=== PATIENT | female | born 1940 | race Caucasian/White ===

== ENCOUNTER 2016-12-07 09:30 | Emergency (ER) | payer MEDICARE, MEDICAID ==
--- NOTE | 2016-12-07 09:46 | UC ---
Hip/Pelvis Pain - HPI Summary HPI Summary: 75 YEAR OLD FEMALE PRESENTS WITH RIGHT HIP/LEG PAIN. - History Of Current Complaint Stated Complaint: RIGHT HIP/GROIN PAIN Time Seen by Provider: 12/07/16 09:45 Hx Obtained From: Patient Hx Last Menstrual Period: n/a Onset/Duration: Sudden Onset Severity Initially: Moderate Severity Currently: Moderate Pain Scale Used: 0-10 Numeric - 5 Character Of Pain: Sharp Aggravating Factor(s): Nothing Alleviating Factor(s): Nothing Associated Signs And Symptoms: Positive: Negative - Allergies/Home Medications Allergies/Adverse Reactions: Allergies Allergy/AdvReac Type Severity Reaction Status Date / Time Ofloxacin [From Floxin] Allergy Unknown Unknown Verified 12/07/16 09:57 Reaction Details Penicillins Allergy Unknown Unknown Verified 12/07/16 09:57 Reaction Details Phenobarbital Allergy Unknown Unknown Verified 12/07/16 09:57 Reaction Details Sulfa Drugs Allergy Unknown Unknown Verified 12/07/16 09:57 Reaction Details LUMINOL Allergy Unknown Unknown Uncoded 12/07/16 09:57 Reaction Details PMH/Surg Hx/FS Hx/Imm Hx Previously Healthy: Yes Other History Of: Negative For: HIV, Hepatitis B, Hepatitis C, Anticoagulant Therapy - Surgical History Surgical History: Yes Surgery Procedure, Year, and Place: TUBAL LIGATION, BLADDER NECK PLASTY, CLOSED REDUCTION,INTERNAL FIXATION L METATARSAL (Pt denies on 08/23/12) - Family History Known Family History: Negative: Diabetes - Social History Alcohol Use: None Substance Use Type: None Smoking Status (MU): Former Smoker Type: Cigarettes Have You Smoked in the Last Year: No - Immunization History Most Recent Influenza Vaccination: 2014 Most Recent Pneumonia Vaccination: 06/08/14 Review of Systems Constitutional: Negative Skin: Negative Eyes: Negative ENT: Negative Respiratory: Negative Cardiovascular: Negative Gastrointestinal: Negative Genitourinary: Negative Motor: Negative Neurovascular: Negative Musculoskeletal: Other: - RIGHT HIP PAIN Neurological: Negative Psychological: Negative All Other Systems Reviewed And Are Negative: Yes Physical Exam Triage Information Reviewed: Yes Eye Exam: Normal ENT Exam: Normal Dental Exam: Normal Neck exam: Normal Neck: Positive: 1 Respiratory Exam: Normal Cardiovascular Exam: Normal Abdominal Exam: Normal Musculoskeletal: Positive: Other: - RIGHT HIP PAIN Neurological Exam: Normal Psychological Exam: Normal Skin Exam: Normal Hip Injury Course/Dx - Differential Dx/Diagnosis Provider Diagnoses: RIGHT HIP PAIN. RIGHT GREATER TROCHANTERIC BURSITIS Discharge - Discharge Plan Condition: Stable Disposition: HOME Prescriptions: Methylprednisolone [Medrol Dosepak 4 MG*] 4 mg PO .SEE DELVIN INSTRUCTION #21 tab Patient Education Materials: Hip Pain (ED) Referrals: Jesus Manuel Encarnacion MD [Primary Care Provider] - Additional Instructions: PHYSICAL THERAPY
[2016-12-07 09:55] VITALS: BP 98/67
== END 2016-12-07 10:14 | disposition home or self-care (01) ==
LOC: UCCORT 09:30
DX: M70.61 Trochanteric bursitis, right hip (principal); Z88.2 Allergy status to sulfonamides; Z88.5 Allergy status to narcotic agent; Z88.1 Allergy status to other antibiotic agents; Z87.891 Personal history of nicotine dependence
CPT/HCPCS: 99212; G0463

== ENCOUNTER 2017-05-30 08:19 | Emergency (ER) | payer MEDICARE, MEDICAID ==
[2017-05-30 08:36] VITALS: BP 97/60
--- NOTE | 2017-05-30 08:57 | UC ---
Ear Complaint HPI - HPI Summary HPI Summary: hearing aide tip stuck in left ear. no c/o pain - has had ear flushed before for cerumen impaction. 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/Locomotive Mechanic Hx Last Menstrual Period: n/a Onset/Duration: Sudden Onset Severity Initially: Mild Severity Currently: Mild Pain Intensity: 0 Aggravating Factors: Nothing Alleviating Factors: Nothing Associated Signs/Symptoms: Positive: Hearing Loss - Allergies/Home Medications Allergies/Adverse Reactions: Allergies Allergy/AdvReac Type Severity Reaction Status Date / Time ofloxacin Allergy Unknown unable to Verified 05/30/17 08:38 determine Penicillins Allergy Unknown Unknown Verified 05/30/17 08:38 Reaction Details phenobarbital Allergy Unknown Unknown Verified 05/30/17 08:37 Reaction Details sulfamethizole Allergy Unknown Unknown Verified 05/30/17 08:39 Reaction Details PMH/Surg Hx/FS Hx/Imm Hx Previously Healthy: Yes Other History Of: Negative For: HIV, Hepatitis B, Hepatitis C, Anticoagulant Therapy - Surgical History Surgical History: Yes Surgery Procedure, Year, and Place: TUBAL LIGATION, BLADDER NECK PLASTY, CLOSED REDUCTION,INTERNAL FIXATION L METATARSAL (Pt denies on 08/23/12) - Family History Known Family History: Positive: None Negative: Diabetes - Social History Occupation: Disabled Lives: [facility] Alcohol Use: None Substance Use Type: None Smoking Status (MU): Former Smoker Type: Cigarettes Have You Smoked in the Last Year: No - Immunization History Most Recent Influenza Vaccination: 2014 Most Recent Pneumonia Vaccination: 06/08/14 Review of Systems Constitutional: Negative Skin: Negative Eyes: Negative ENT: Other - hearing aid tip stuck in left ear - wax present also Respiratory: Negative Cardiovascular: Negative Gastrointestinal: Negative Genitourinary: Negative Neurological: Negative Psychological: Negative Is Patient Immunocompromised?: No All Other Systems Reviewed And Are Negative: Yes Physical Exam Triage Information Reviewed: Yes Appearance: Well-Appearing Vital Signs: Initial Vital Signs Temp 97.4 F 05/30/17 08:32 Pulse 63 05/30/17 08:32 Resp 16 05/30/17 08:32 BP 97/60 05/30/17 08:32 Pulse Ox 100 05/30/17 08:32 Vital Signs Reviewed: Yes Eye Exam: Normal ENT: Positive: Other - hearing aid tip stuck in left ear - wax buildup Respiratory Exam: Normal Cardiovascular Exam: Normal Abdominal Exam: Normal Neurological Exam: Normal Psychological Exam: Normal Skin Exam: Normal Ear Complaint Course/Dx - Course Course Of Treatment: pulled out hearing aid tip with tweezers. flushed left ear with warm water and received a large amount dark brown cerumen TM intact no further foreign object present - tolerated well. f/u prn. filled out form from home - Differential Dx/Diagnosis Provider Diagnoses: cerumen impaction - left ear. foreign body removed left ear Discharge - Sign-Out/Discharge Documenting (check all that apply): Discharge - Discharge Plan Condition: Good Disposition: HOME Patient Education Materials: Cerumen Impaction (ED), Ear Foreign Body (ED) Referrals: Jesus Manuel Encarnacion MD [Primary Care Provider] - - Billing Disposition and Condition Condition: GOOD Disposition: HOME
== END 2017-05-30 09:50 | disposition home or self-care (01) ==
LOC: UCCORT 08:19
DX: T16.2XXA Foreign body in left ear, initial encounter (principal); X58.XXXA Exposure to other specified factors, initial encounter; H61.22 Impacted cerumen, left ear; Z88.0 Allergy status to penicillin; Z88.2 Allergy status to sulfonamides; Z88.8 Allergy status to other drugs, medicaments and biological substances; Z87.891 Personal history of nicotine dependence
CPT/HCPCS: 99212; G0463

== ENCOUNTER 2017-06-16 16:44 | Emergency (ER) | payer MEDICARE, MEDICAID ==
[2017-06-16 18:50] VITALS: BP 105/69
--- NOTE | 2017-06-16 18:51 | UC ---
Complaint Female HPI - HPI Summary HPI Summary: Pt with dysuria, frequency and hematuria tonight. 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 Hammer Operator Hx Last Menstrual Period: n/a ?: No Onset/Duration: Gradual Onset Timing: Intermittent Severity Initially: Mild Severity Currently: None Pain Intensity: 0 Pain Scale Used: 0-10 Numeric Character: Burning Aggravating Factor(s): Urination Alleviating Factor(s): Nothing Associated Signs And Symptoms: Negative: Negative, Fever, Back Pain, Nausea - Allergies/Home Medications Allergies/Adverse Reactions: Allergies Allergy/AdvReac Type Severity Reaction Status Date / Time ofloxacin Allergy Unknown unable to Verified 06/16/17 18:43 determine Penicillins Allergy Unknown Unknown Verified 06/16/17 18:43 Reaction Details phenobarbital Allergy Unknown Unknown Verified 06/16/17 18:43 Reaction Details sulfamethizole Allergy Unknown Unknown Verified 06/16/17 18:43 Reaction Details PMH/Surg Hx/FS Hx/Imm Hx GI/ History: Other Other GI/ History: recurrent UTI Neurological History: Other Other Neurological History: MR Psychological History: Depression Other History Of: Negative For: HIV, Hepatitis B, Hepatitis C, Anticoagulant Therapy - Surgical History Surgical History: Yes Surgery Procedure, Year, and Place: TUBAL LIGATION, BLADDER NECK PLASTY, CLOSED REDUCTION,INTERNAL FIXATION L METATARSAL (Pt denies on 08/23/12) - Family History Known Family History: Positive: None Negative: Diabetes - Social History Occupation: Disabled Lives: [facility] Alcohol Use: None Substance Use Type: None Smoking Status (MU): Former Smoker Type: Cigarettes Have You Smoked in the Last Year: No - Immunization History Most Recent Influenza Vaccination: 2014 Most Recent Pneumonia Vaccination: 06/08/14 Review of Systems Constitutional: Negative Genitourinary: Dysuria, Hematuria, Frequency, Urgency All Other Systems Reviewed And Are Negative: Yes Physical Exam Triage Information Reviewed: Yes Completion Of Physical Exam Limited Due To: Other - pt with mild MR - Appearance: Well-Appearing, No Pain Distress, Well-Nourished Vital Signs: Initial Vital Signs Temp 97.3 F 06/16/17 18:44 Pulse 80 06/16/17 18:44 Resp 16 06/16/17 18:44 BP 105/69 06/16/17 18:44 Pulse Ox 100 06/16/17 18:44 Vital Signs Reviewed: Yes Eye Exam: Normal Eyes: Positive: Conjunctiva Clear ENT Exam: Normal ENT: Positive: Hearing grossly normal Neck exam: Normal Neck: Positive: Supple, Nontender, No Lymphadenopathy Respiratory Exam: Normal Respiratory: Positive: Chest non-tender, Lungs clear, Normal breath sounds, No respiratory distress, No accessory muscle use Cardiovascular Exam: Normal Cardiovascular: Positive: RRR, No Murmur Abdominal Exam: Normal Abdomen Description: Positive: Nontender, No Organomegaly, Soft. Negative: CVA Tenderness (R), CVA Tenderness (L) Bowel Sounds: Positive: Present Psychological: Positive: Other: - baseline per family Skin Exam: Normal Complaint Female Dx - Course Course Of Treatment: pt with dysuria, hematuria, frequency starting today. h/o uti. Pt with + uti on dip. culture. macrobid. hydrated. declined pyridium. culture pending. home forms complete - Differential Dx/Diagnosis Provider Diagnoses: uti Discharge - Sign-Out/Discharge Documenting (check all that apply): Discharge - Discharge Plan Condition: Stable Disposition: HOME Prescriptions: Nitrofurantoin Macrocrystal [Nitrofurantoin] 100 mg PO BID #20 capsule Patient Education Materials: Urinary Tract Infection in Women (ED) Referrals: Jesus Manuel Encarnacion MD [Primary Care Provider] - Additional Instructions: - stay well hydrated - drink plenty of non-alcoholic, non caffinated beverages - your urine will be further tested - if you require any changes to your treatment, we will contact you - this usually take 2 days - Contact your primary doctor to arrange a follow-up appointment next week. Contact your doctor or return with questions or concerns - Take your antibiotics exactly as prescribed until gone - Take pyridium as prescribed for discomfort. This will make your urine blaze orange - this is normal - Call your docto or go to the emergency department with questions or concerns- fever, vomiting, back pain, unable to urinate - Billing Disposition and Condition Condition: STABLE Disposition: HOME
[2017-06-16] MEDS ORDERED: Nitrofurantoin Macrocrystals* 50 MG CAP PO ONE (18:57)
== END 2017-06-16 19:07 | disposition home or self-care (01) ==
LOC: UCCORT 16:44
DX: N39.0 Urinary tract infection, site not specified (principal); Z87.891 Personal history of nicotine dependence; Z88.3 Allergy status to other anti-infective agents; Z88.0 Allergy status to penicillin; Z88.8 Allergy status to other drugs, medicaments and biological substances; Z88.2 Allergy status to sulfonamides
CPT/HCPCS: 81003; 87077; 87086; 87186; 99212; A9270-GY; G0463

== ENCOUNTER 2018-09-05 09:00 | Emergency (ER) | payer MEDICARE, MEDICAID ==
[2018-09-05 09:31] VITALS: BP 96/59
--- NOTE | 2018-09-05 09:45 | ED ---
Adult Trauma - HPI Summary HPI Summary: 77 yr old female with the complaint of fall. She lives in a [facility] and was noted to have fallen landing on the right buttock area. The patient has no pain or complaints presently. She seems to be at her normal baseline per the aid that is with her from the [facility]. - History of Current Complaint Chief Complaint: UCGeneralIllness Stated Complaint: SP FALL-RT SIDE PAIN Time Seen by Provider: 09/05/18 09:21 Hx Last Menstrual Period: n/a Pain Intensity: 0 - Allergy/Home Medications Allergies/Adverse Reactions: Allergies Allergy/AdvReac Type Severity Reaction Status Date / Time ofloxacin Allergy Unknown unable to Verified 09/05/18 09:34 determine Penicillins Allergy Unknown Unknown Verified 09/05/18 09:34 Reaction Details phenobarbital Allergy Unknown Unknown Verified 09/05/18 09:34 Reaction Details sulfamethizole Allergy Unknown Unknown Verified 09/05/18 09:34 Reaction Details PMH/Surg Hx/FS Hx/Imm Hx Endocrine/Hematology History: Denies: Hx Anticoagulant Therapy Cardiovascular History: Denies: Hx Congestive Heart Failure, Hx Deep Vein Thrombosis, Hx Hypertension , Hx Myocardial Infarction, Hx Pacemaker/ICD Respiratory History: Denies: Hx Asthma, Hx Chronic Obstructive Pulmonary Disease (COPD), Hx Lung Cancer, Hx Pneumonia, Hx Pulmonary Embolism GI History: Denies: Hx Gall Bladder Disease, Hx Gastrointestinal Bleed, Hx Ulcer, Hx Urosepsis History: Denies: Hx Kidney Stones, Hx Renal Disease Neurological History: Reports: Hx Seizures Denies: Hx Dementia, Hx Migraine, Hx Transient Ischemic Attacks (TIA) Psychiatric History: Reports: Hx Anxiety Denies: Hx Depression, Hx Schizophrenia, Hx Bipolar Disorder - Cancer History Cancer Type, Location and Year: breast cancer - Surgical History Surgery Procedure, Year, and Place: TUBAL LIGATION, BLADDER NECK PLASTY, CLOSED REDUCTION,INTERNAL FIXATION L METATARSAL (Pt denies on 08/23/12) Infectious Disease History: No Infectious Disease History: Denies: Traveled Outside the [place] in Last 30 Days - Family History Known Family History: Positive: None Negative: Diabetes - Social History Alcohol Use: None Substance Use Type: Reports: None Smoking Status (MU): Former Smoker Type: Cigarettes Have You Smoked in the Last Year: No Review of Systems Constitutional: Negative Positive: Other - contusion right buttock area. All Other Systems Reviewed And Are Negative: Yes Physical Exam Triage Information Reviewed: Yes Vital Signs On Initial Exam: Initial Vitals Temp Pulse Resp BP Pulse Ox 97.2 F 67 16 96/59 100 09/05/18 09:24 09/05/18 09:24 09/05/18 09:24 09/05/18 09:24 09/05/18 09:24 Vital Signs Reviewed: Yes Appearance: Positive: Well-Appearing, No Pain Distress Skin: Positive: Warm, Skin Color Reflects Adequate Perfusion, Other - right hip pelvis area without any redness, [place] or bruises. Head/Face: Positive: Normal Head/Face Inspection Eyes: Positive: EOMI ENT: Positive: Normal ENT inspection Neck: Positive: Nontender Respiratory/Lung Sounds: Positive: Clear to Auscultation Cardiovascular: Positive: RRR Abdomen Description: Negative: Distended Musculoskeletal: Positive: Other - non tender to the right pelvis/hip on palpation. Neurological: Positive: Sensory/Motor Intact, Alert, Oriented to Person Place, Time, CN Intact II-III, Speech Normal Psychiatric: Positive: Normal - Sabrina Coma Scale Best Eye Response: 4 - Spontaneous Best Motor Response: 6 - Obeys Commands Best Verbal Response: 5 - Oriented Coma Scale Total: 15 Diagnostics - Vital Signs Vital Signs Temp Pulse Resp BP Pulse Ox 09/05/18 09:24 97.2 F 67 16 96/59 100 - Laboratory Lab Statement: Any lab studies that have been ordered have been reviewed, and results considered in the medical decision making process. Adult Trauma Course/Dx - Course Course Of Treatment: 77 yr old with contusion to the right pelvis. No evidence of any pain or imparement in use at this time. DC home. - Diagnoses Provider Diagnoses: Contusion of right hip Discharge - Sign-Out/Discharge Documenting (check all that apply): Patient Departure All imaging exams completed and their final reports reviewed: No Studies - Discharge Plan Condition: Good Disposition: HOME Patient Education Materials: Contusion in Adults (ED) Referrals: Jesus Manuel Encarnacion MD [Primary Care Provider] - 2 Days - Billing Disposition and Condition Condition: GOOD Disposition: Home
== END 2018-09-05 09:47 | disposition home or self-care (01) ==
LOC: UCCORT 09:00
DX: S70.01XA Contusion of right hip, initial encounter (principal); W19.XXXA Unspecified fall, initial encounter; Y92.009 Unspecified place in unspecified non-institutional (private) residence as the place of occurrence of the external cause; Z85.3 Personal history of malignant neoplasm of breast; Z87.891 Personal history of nicotine dependence
CPT/HCPCS: 99211; G0463

== ENCOUNTER 2018-12-22 13:13 | Emergency (ER) | payer MEDICARE, MEDICAID ==
--- OUTSIDE RECORDS SUMMARY | 2018-12-22 13:30 | XMS REPORT | Continuity of Care Document ---
:1940 External Reference #:[id number] Author Name Abhijeet Stallworth PA Address [address], [address] [place] [address] Care Team Providers Name Role Phone Jesus Manuel Encarnacion MD - Family Care Team Information Police Superintendent Medicine Nilo Stuart M.D. - Radiation Care Team Information Police Superintendent Oncology Problems Active Problems Provider Date Breast finding Sergio Padgett MD Onset: 06/07/2013 Malignant neoplasm of female breast Sergio Padgett MD Onset: 06/19/2013 [facility] colon History of chronic urinary tract Shyanne Freeman M.D. Onset: 02/24/2018 infection Urge incontinence of urine Shyanne Freeman M.D. Onset: 02/24/2018 Social History Type Date Description Comments Sex Unknown Tobacco Use Start: Unknown End: Former Cigarette Smoker Unknown ETOH Use Denies alcohol use Tobacco Use Start: Unknown End: Patient is a former smoker Unknown Recreational Drug Use Denies Drug Use Tobacco Use Start: Unknown Patient denies history of smoking Smoking Status Reviewed: 11/28/18 Patient denies history of smoking Allergies, Adverse Reactions, Alerts Active Allergies Reaction Severity Comments Date Sulfa Drugs 06/02/2013 Phenobarbital 06/02/2013 Floxin 06/02/2013 Penicillin 06/02/2013 Ofloxacin 02/24/2018 Luminal 02/24/2018 Medications Active Medications SIG Qnty Indications Ordering Date Provider Darifenacin 1 by mouth every Abhijeet Stallworth 12/12/2018 Hydrobromide ER day R., PA 15mg Tablets ER 24HR Systane Contacts Unknown Soothing Drops Solution Donepezil HCL Samina Thomas 10mg Marina, Tablets FMHNP Senna 1-2 by mouth per Unknown 8.6mg Tablets day as needed constipation Divalproex Sodium take one tablet by Unknown 500mg mouth twice a day Tablets DR Anastrozole 1 tablet by mouth Unknown 1mg Tablets qday Mylanta Unknown [id number]/5ML Suspension Artificial Tears instill 1 drop in Unknown 1.4% both eyes 4 times a Solution day Tussin DM Unknown 100-10mg/5ML Liquid Buspirone HCL 1 tab by mouth Unknown 10mg bid-tid for anxiety Tablets as needed Miralax 17g by mouth twice Unknown 3350NF Packet a day as needed constipation. Vitamin D3 po qd Unknown 2000Unit Capsules OS-Jignesh 500 + D Unknown Tablets Tylenol prn Unknown 325mg Tablets Multivitamins 1 by mouth every 90caps Unknown Capsules day History Medications Myrbetriq 1 by mouth every day 90tabs Shyanne Freeman, 12/06/2018 - 50mg Tablets M.D. Unknown ER 24HR Darifenacin 1 by mouth every day 45tabs Shyanne Freeman, 11/14/2018 - Hydrobromide ER x 2 weeks july M.D. 12/12/2018 7.5mg titrate 2 po qd in Tablets ER 24HR no improvement @ 2 weeks Immunizations Description No Information Available Vital Signs Date Vital Result Comment 12/12/2018 10:36am BP Systolic 120 mmHg BP Diastolic 66 mmHg Body Temperature 97.6 F Heart Rate 61 /min Respiratory Rate 16 /min Weight 171.00 lb O2 % BldC Oximetry 96 % Pain Level 0 11/14/2018 3:04pm BP Systolic Sitting Left Arm 101 mmHg BP Diastolic Sitting Left Arm 66 mmHg Body Temperature 97.8 F Heart Rate 110 /min Respiratory Rate 20 /min Height 64 inches 5'4" [place] body weight in kilograms 54 kg O2 % BldC Oximetry 97 % Results Test Date Facility Test Result H/L Range Note Urine Dipstick 11/14/2018 [facility]a Color yellow Yellow Ua Clarity clear Clear Ua Leuko neg Negative Ua Nitrite neg Negative Ua Urobilinogen neg Low 0.2 - 1.0 E.U./dL Ua Protein neg Negative Ua PH 6.5 6.5-7.5 Ua Blood neg Negative Ua Specific [place] 1.015 1.010-1.030 Ua Ketones neg Negative Ua Bilirubin neg Negative Ua Glucose neg Negative Procedures Date Code Description Status 11/14/2018 43786 Measurement Post Voiding Residual Urine By Completed Ultrasound,Non-Imaging 05/22/2014 [id number] Mammogram Completed 11/21/2013 [id number] Mammogram Completed 06/27/2013 [id number] Mammogram Completed 06/01/2013 [id number] Mammogram Completed 05/31/2013 [id number] Mammogram Completed 03/08/2012 [id number] Bone Mineral Density Test Completed 03/08/2007 [id number] Colonoscopy Completed Medical Devices Description No Information Available Encounters Type Date Location Provider Dx Diagnosis Office Visit 11/14/2018 Urology Abhijeet Stallworth, Z87.440 Personal history of 2:45p PA urinary (tract) infections N39.41 Urge incontinence Assessments Date Code Description Provider 12/12/2018 N39.41 Urge incontinence Abhijeet Stallworth PA 11/14/2018 Z87.440 Personal history of urinary (tract) Abhijeet Stallworth PA infections 11/14/2018 N39.41 Urge incontinence Abhijeet Stallworth PA Plan of Treatment Future Appointment(s):06/13/2019 10:30 am - Abhijeet Stallworth PA at [id number] 1:00 pm - Forrest Lang M.D. at Surgical Office Functional Status Functional Condition Comment Date Status Hearing Aid in Both ears Active Complete Dentures Active Mental Status Description No Information Available Referrals Description No Information Available
--- OUTSIDE RECORDS SUMMARY | 2018-12-22 13:30 | XMS REPORT | Continuity of Care Document ---
:1940 External Reference #:[id number] Author Name Forrest Lang M.D. (transmitted by agent of provider Abhijeet Stallworth) Address [address] [place] [id number] Care Team Providers Name Role Phone Jesus Manuel Encarnacion MD - Family Care Team Information Charge Account Authorizer Medicine Nilo Stuart M.D. - Radiation Care Team Information Charge Account Authorizer Oncology Problems Active Problems Provider Date Breast finding Sergio Padgett MD Onset: 06/07/2013 Malignant neoplasm of female breast Sergio Padgett MD Onset: 06/19/2013 Screening for malignant neoplasm of Forrest Lang M.D. Onset: colon History of chronic urinary [...] Date Provider Darifenacin 1 by mouth every 45tabs Pete, 11/14/2018 Hydrobromide ER day x 2 weeks july Hamilton Kimble 7.5mg titrate 2 po qd in Tablets ER 24HR no improvement @ 2 weeks Multivitamins 1 by mouth every 90caps Unknown Capsules day Tylenol prn Unknown 325mg Tablets OS-Jignesh 500 + D Unknown Tablets Vitamin D3 po qd Unknown 2000Unit Capsules Miralax 17g by mouth twice Unknown 3350NF Packet a day as needed constipation. Buspirone HCL 1 tab by mouth Unknown 10mg bid-tid for anxiety Tablets as needed Tussin DM Unknown 100-10mg/5ML Liquid Artificial Tears instill 1 drop in Unknown 1.4% both eyes 4 times a Solution day Mylanta Unknown [id number]/[id number] Suspension Anastrozole 1 tablet by mouth Unknown 1mg Tablets qday Divalproex Sodium take one tablet by Unknown 500mg mouth twice a day Tablets DR Bland 1-2 by mouth per Unknown 8.6mg Tablets day as needed constipation Donepezil HCL Samina Thomas 10mg Marina, Tablets FMHNP Systane Contacts Unknown Soothing Drops Solution History Medications Myrbetriq 1 by mouth every 90tabs Shyanne Freeman, 12/06/2018 - Unknown 50mg day M.D. Tablets ER 24HR Immunizations Description No Information Available Vital Signs [...] Rate 20 /min Height 64 inches 5'4" [place] body weight in kilograms 54 kg O2 [...] 6.5-7.5 Ua Blood neg Negative Ua Specific [place] 1.015 1.010-1.030 Ua Ketones neg Negative Ua Bilirubin neg Negative Ua Glucose neg Negative Procedures Date Code Description Status 11/14/2018 02325 Measurement Post Voiding Residual Urine By Completed Ultrasound,Non-Imaging 05/22/2014 [id number] Mammogram Completed 11/21/2013 [id number] Mammogram Completed 06/27/2013 [id number] Mammogram Completed 06/01/2013 [id number] Mammogram Completed 05/31/2013 [id number] Mammogram Completed 03/08/2012 [id number] Bone Mineral Density Test Completed 03/08/2007 [id number] Colonoscopy Completed Medical Devices Description No Information Available Encounters Type Date Location Provider Dx Diagnosis Office Visit 11/14/2018 Urology Abhijeet Stallworth, Z87.440 Personal history of 2:45p PA urinary (tract) infections N39.41 Urge incontinence Assessments Date Code Description Provider 11/14/2018 Z87.440 Personal history of urinary (tract) Abhijeet Stallworth PA infections 11/14/2018 N39.41 Urge incontinence Abhijeet Stallworth PA Plan of Treatment Future Appointment(s):12/22/2018 1:00 pm - Forrest Lang M.D. at Surgical Office Functional Status Functional Condition Comment Date Status Hearing Aid in Both ears Active Complete Dentures Active Mental Status Description No Information Available Referrals Description No Information Available
--- OUTSIDE RECORDS SUMMARY | 2018-12-22 13:30 | XMS REPORT | Continuity of Care Document ---
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 Onset: 02/24/2018 History of chronic urinary tract Shyanne Freeman M.D. Onset: 02/24/2018 infection Screening for malignant neoplasm of JavierForrest M.D. Onset: colon Malignant neoplasm of female breast Sergio Padgett MD Onset: 06/19/2013 Breast finding Sergio Padgett MD Onset: 06/07/2013 Social History Type Date Description Comments Sex Unknown Tobacco Use Start: Unknown End: Former Cigarette Smoker Unknown ETOH Use Denies alcohol use Tobacco Use Start: Unknown End: Patient is a former smoker Unknown Recreational Drug Use Denies Drug Use Tobacco Use Start: Unknown Patient denies history of smoking Smoking Status Reviewed: 09/28/18 Patient denies history of smoking Allergies, Adverse [...] 4 times a Solution day Mylanta Unknown [id number] Suspension Anastrozole 1 tablet by mouth Unknown 1mg Tablets qday Divalproex Sodium take one tablet by Unknown 500mg mouth twice a day Tablets DR Bland 1-2 by mouth per Unknown 8.6mg Tablets day as needed constipation Donepezil HCL Thomas, Samina 10mg Marina, Tablets HNP Donepezil HCL Thomas, Samina 5mg Marina, Tablets HNP Immunizations Description No Information Available Vital Signs Date Vital Result Comment 11/14/2018 3:04pm BP Systolic Sitting Left Arm 101 mmHg BP Diastolic Sitting Left Arm 66 mmHg Body Temperature 97.8 F Heart Rate 110 /min Respiratory Rate 20 /min Height 64 inches 5'4" [place] body weight in kilograms 54 kg O2 % BldC Oximetry 97 % 05/09/2018 2:50pm BP Systolic 130 mmHg BP Diastolic 70 mmHg Body Temperature 97.3 F Heart Rate 60 /min Respiratory Rate 16 /min Height 64 inches 5'4" [place] body weight in kilograms 54 kg O2 % BldC Oximetry 98 % Pain Level 0 Results Test Date Facility Test Result H/L Range Note Urine Dipstick 11/14/2018 [facility] Color yellow Yellow [facility] Clarity clear Clear [facility] Leuko neg Negative Ua Nitrite neg Negative Ua Urobilinogen neg Low 0.2 - 1.0 E.U./dL Ua Protein neg Negative Ua PH 6.5 6.5-7.5 Ua Blood neg Negative Ua Specific [place] 1.015 1.010-1.030 Ua Ketones neg Negative Ua Bilirubin neg Negative Ua Glucose neg Negative Procedures Date Code Description Status 05/22/2014 [id number] Mammogram Completed 11/21/2013 [id number] Mammogram Completed 06/27/2013 [id number] Mammogram Completed 06/01/2013 [id number] Mammogram Completed 05/31/2013 [id number] Mammogram Completed 03/08/2012 [id number] Bone Mineral Density Test Completed 03/08/2007 [id number] Colonoscopy Completed Medical Devices Description No Information Available Encounters Type Date Location Provider Dx Diagnosis Office Visit 11/14/2018 Urology Abhijeet Stallworth, Z87.440 Personal history of 2:45p PA urinary (tract) infections N39.41 Urge incontinence Assessments Date Code Description Provider 11/14/2018 Z87.440 Personal history of urinary (tract) Abhijeet Stallworth PA infections 11/14/2018 N39.41 Urge incontinence Abhijeet Stallworth PA Plan of Treatment Future Appointment(s):12/12/2018 10:30 am - Abhijeet Stallworth PA at [id number] 1:00 pm - Forrest Lang M.D. at [facility]/29/2016 - Forrest Lang M.D.D24.1 Benign neoplasm of right breastComments: Pathology report reviewed with Kalina and the woman with a line by line. Questions addressed. Healing well. Pleased. Continue with routine follow-up mammogram.Z85.3 Personal history of malignant neoplasm of breast Functional Status Functional Condition Comment Date Status Hearing Aid in Both ears Active Complete Dentures Active Mental Status Description No Information Available Referrals Description No Information Available
--- NOTE | 2018-12-22 14:08 | UC ---
General HPI - HPI Summary HPI Summary: Patient is a 78yo female with dementia presenting with her aide from outside halfway for right rib pain that occurred around 1230 this afternoon and lasted 5-10minutes. No injury or trauma. History mostly obtained by aide d/t patient's dementia. Patient denies current pain. Denies recent URI symptoms. Denies cough and SOB. Denies decreased appetite. Denies fever and chills. Denies n/v/d. Denies bruising or swelling. Patient unable to describe the pain. No known history of heart problems. - History of Current Complaint Chief Complaint: UCChestPain Stated Complaint: PAIN ABOVE RT SIDE RIB CAGE Hx Last Menstrual Period: n/a Onset/Duration: Sudden Onset Pain Intensity: 0 - Allergy/Home Medications Allergies/Adverse Reactions: Allergies Allergy/AdvReac Type Severity Reaction Status Date / Time ofloxacin Allergy Unknown unable to Verified 12/22/18 14:50 determine Penicillins Allergy Unknown Unknown Verified 12/22/18 14:50 Reaction Details phenobarbital Allergy Unknown Unknown Verified 12/22/18 14:50 Reaction Details sulfamethizole Allergy Unknown Unknown Verified 12/22/18 14:50 Reaction Details Home Medications: Home Medications Acetaminophen TAB* [Tylenol TAB*] 650 mg PO Q4H PRN 12/22/18 [History Confirmed 12/22/18] Al Hydrox/Mg Hydrox/Simet LIQ* [Maalox Plus*] 15 ml PO Q4H PRN 12/22/18 [ History Confirmed 12/22/18] Anastrozole (NF) [Arimidex (NF)] 1 mg PO 2000 12/22/18 [History Confirmed ] Artificial Tears* 15 ML BTL [Polyvinyl Alcohol 1.4% OPTH*] 1 - 2 drop BOTH EYES QID PRN 12/22/18 [History Confirmed 12/22/18] Bisacodyl SUPP* [Dulcolax Supp*] 10 mg MA DAILY PRN 12/22/18 [History Confirmed 12/22/18] Calcium Carbonate/Vitamin D3 [Calcium Carbonate/Vitamin] 1 tab PO 1600 12/22/18 [History Confirmed 12/22/18] Cholecalciferol (Vitamin D3) [Vitamin D3] 2,000 unit PO 0700 12/22/18 [History Confirmed 12/22/18] Darifenacin Hydrobromide [Darifenacin ER] 15 mg PO 199912/22/18 [History Confirmed 12/22/18] Divalproex ER TAB(*) [Depakote ER TAB(*)] 500 mg PO 0700,1600 12/22/18 [History Confirmed 12/22/18] Donepezil TAB* [Aricept 5 MG TAB*] 10 mg PO DAILY 12/22/18 [History Confirmed ] Polyethylene Glycol 3350 BTL* [Miralax] 2 cap PO 0700 12/22/18 [History Confirmed 12/22/18] Senna TAB 8.6 mg* [Senokot 8.6 mg TAB*] 2 tab PO BEDTIME 12/22/18 [History Confirmed 12/22/18] Vitamin THERAPEUTIC TAB* [Theragran TAB*] 1 tab PO 0700 12/22/18 [History Confirmed 12/22/18] busPIRone TAB* [Buspar TAB*] 10 mg PO 0700,1500,199912/22/18 [History Confirmed 12/22/18] PMH/Surg Hx/FS Hx/Imm Hx Neurological History: Dementia, Seizures Other History Of: Negative For: HIV, Hepatitis B, Hepatitis C, Anticoagulant Therapy - Surgical History Surgical History: Yes Surgery Procedure, Year, and Place: TUBAL LIGATION, BLADDER NECK PLASTY, CLOSED REDUCTION,INTERNAL FIXATION L METATARSAL (Pt denies on 08/23/12) - Family History Known Family History: Positive: None Negative: Diabetes - Social History Alcohol Use: None Substance Use Type: None Smoking Status (MU): Former Smoker Type: Cigarettes Have You Smoked in the Last Year: No - Immunization History Most Recent Influenza Vaccination: 2014 Most Recent Pneumonia Vaccination: 06/08/14 Review of Systems All Other Systems Reviewed And Are Negative: Yes Constitutional: Positive: Negative. Negative: Fever, Chills Skin: Negative: Rash, Bruising ENT: Positive: Negative Respiratory: Positive: Negative. Negative: Shortness Of Breath, Cough Cardiovascular: Positive: Negative, Chest Pain. Negative: Palpitations Gastrointestinal: Positive: Negative. Negative: Abdominal Pain, Vomiting, Diarrhea, Nausea Musculoskeletal: Positive: Negative. Negative: Edema Neurological: Positive: Negative Physical Exam Triage Information Reviewed: Yes Completion Of Physical Exam Limited Due To: Dementia Appearance: Well-Appearing, No Pain Distress, Well-Nourished Vital Signs: Initial Vital Signs Temp 97.8 F 12/22/18 13:45 Pulse 66 12/22/18 13:45 Resp 18 12/22/18 13:45 BP 113/63 12/22/18 13:45 Pulse Ox 97 12/22/18 13:45 Vital Signs Reviewed: Yes Eyes: Positive: Conjunctiva Clear ENT: Positive: Hearing grossly normal Neck exam: Normal Neck: Positive: Supple, Nontender, No Lymphadenopathy Respiratory Exam: Normal Respiratory: Positive: Chest non-tender, Lungs clear, Normal breath sounds, No respiratory distress Cardiovascular Exam: Normal Cardiovascular: Positive: RRR. Negative: Tachycardia Abdominal Exam: Normal Abdomen Description: Positive: Nontender, Soft Musculoskeletal Exam: Normal, Other - no tenderness to palpation of right ribs Neurological: Positive: Alert Psychological: Positive: Decreased Age Appropriate Behavior Skin Exam: Normal - no erythema or ecchymosis noted Diagnostics - EKG Cardiac Rate: NL - 66 Cardiac Rhythm: Sinus: Normal Ectopy: None Summary of EKG Findings: ST depressions in inferolateral leads Course/Dx - Course Course Of Treatment: 78 yr old with Chest pain, 5 minutes, and gone. About two hours ago. Seen With NEDA Patel. The patient has lung CTA, and cardiac RRR. EKG shows inferior later st depressions. LUDIVINA called [facility] and spoke with the provider to inform of transfer. Patient given aspirin and EMS transport for Chest pain work up. - Diagnoses Provider Diagnosis: Abnormal finding on EKG, Right-sided chest wall pain Discharge ED - Sign-Out/Discharge Documenting (check all that apply): Patient Departure All imaging exams completed and their final reports reviewed: No Studies - Discharge Plan Condition: Stable Disposition: TRANS HIGHER L OF CARE FAC Referrals: Jesus Manuel Encarnacion MD [Primary Care Provider] - - Billing Disposition and Condition Condition: STABLE Disposition: Trans Higher Lvl of Care Fac
[2018-12-22] MEDS ORDERED: Aspirin 81 mg CHEW TAB* 81 MG TAB.CHEW PO ONE (14:52)
[2018-12-22 15:24] VITALS: BP 130/100
== END 2018-12-22 15:18 | disposition short-term general hospital (02) ==
LOC: UCCORT 13:13
DX: R07.89 Other chest pain (principal); R94.31 Abnormal electrocardiogram [ECG] [EKG]; F03.90 Unspecified dementia, unspecified severity, without behavioral disturbance, psychotic disturbance, mood disturbance, and anxiety; Z88.1 Allergy status to other antibiotic agents; Z88.0 Allergy status to penicillin; Z88.2 Allergy status to sulfonamides; Z88.8 Allergy status to other drugs, medicaments and biological substances; Z87.891 Personal history of nicotine dependence
CPT/HCPCS: 93005; 99213; A9270-GY; G0463